=== PATIENT | female | born 1940 | race Caucasian/White ===

== ENCOUNTER 2019-02-01 13:06 | Inpatient (IN) ==
[2019-02-01] MEDS ORDERED: IOPAMIDOL 100 ML BOTTLE IV ONE (13:07)
--- NOTE | 2019-02-01 14:30 | Emergency Department Note ---
General Adult HPI - General Chief complaint: Extremity Problem,Nontraumatic Stated complaint: Confusion, cellulitis Time Seen by Provider: 02/01/19 13:28 Source: patient, other (Caregiver) Mode of arrival: wheelchair Limitations: altered mental status - History of Present Illness HPI Narrative: 79-year-old female was brought in by her caregiver secondary to confusion which has increased lately. They also noted some cyanosis to bilateral feet which has improved. Patient is on aspirin and clopidogrel lately but has not taken for a day or so-secondary to recent nursing instruction. Her caregiver called the clinic and Laura Graham nurse practitioner advised her to come here. No fever chills nausea vomiting diarrhea. She is on doxycycline for left lower leg cellulitis which is actually looking better today. Noted dementia All history and review of systems are from her caregiver in the nursing record. The patient is unable to give me any meaningful history or review of systems and does not know why she is here. She has no complaints-she expresses frustration that she cannot remember anything - Related Data Home Medications Medication Instructions Recorded Confirmed Albuterol Sulfate [Proair Hfa] 2 puff IH Q4H 08/10/15 02/01/19 Atorvastatin [Lipitor] 10 mg PO HS 08/10/15 02/01/19 Budesonide/Formoterol Fumarate 2 puff IH BID 08/10/15 02/01/19 [Symbicort 160-4.5 Mcg Inhaler] DULoxetine [Cymbalta] 90 mg PO DAILY 08/10/15 02/01/19 Furosemide [Lasix] 40 mg PO DAILYP PRN 08/10/15 02/01/19 Gabapentin [Neurontin] 1,200 mg PO BID 08/10/15 02/01/19 Levothyroxine [Synthroid] 150 mcg PO ACB 08/10/15 02/01/19 Modafinil [Provigil] 200 mg PO DAILY 08/10/15 02/01/19 Oxybutynin Chloride [Oxybutynin 15 mg PO HS 08/10/15 02/01/19 Chloride ER] Potassium Chloride 10 meq PO DAILY 08/10/15 02/01/19 Pramipexole [Mirapex] 1 mg PO HS 08/10/15 02/01/19 buPROPion HCL [Bupropion HCl Sr] 150 mg PO BID 08/10/15 02/01/19 traZODone HCL [Desyrel] 150 mg PO HS 08/10/15 02/01/19 doxycycline hyclate 100 mg capsule 100 mg PO BID 02/01/19 02/01/19 Allergies Allergy/AdvReac Type Severity Reaction Status Date / Time iodine [IODINE] Allergy Intermediate Hives Verified 02/01/19 13:07 Sulfa (Sulfonamide Allergy Intermediate Rash Verified 02/01/19 13:07 Antibiotics) cephalexin AdvReac Mild Nausea Verified 02/01/19 13:07 morphine AdvReac Mild Nausea/Vomi Verified 02/01/19 13:07 ting Review of Systems All systems ED: reviewed and negative except as stated. Past Medical History - Past Medical History Attestation: Yes: The following information was validated with the patient. [facility] Narrative: Medical History (Last Reviewed 02/01/19 @ 12:41 by Clarice Menjivar PA-C) Acute respiratory failure with hypercapnia (Acute) Acute respiratory failure with hypoxia (Acute) COPD (chronic obstructive pulmonary disease) with chronic bronchitis (Acute) Depression (Acute) Hyperlipidemia (Acute) Generalized anxiety disorder (Acute) HTN (hypertension) (Acute) Osteoarthritis (Acute) RLS (restless legs syndrome) (Acute) CVA (cerebral vascular accident) (Acute) Hypothyroid (Acute) Weakness (Acute) Shortness of Breath (Acute) Abscess of skin or subcutaneous tissue (Acute) Medical history: Reports: CAD (coronary artery disease), COPD, CVA Psychiatric history: Reports: anxiety Surgical history ED: Reports: non-contributory - Social History smoking status: Current every day smoker Alcohol use: Reports: Unknown Drug use: Reports: unknown Physical Exam No acute distress resting. She is able to sit up for my exam without difficulty or assistance. Normocephalic atraumatic. Conjunctive are clear sclerae white nonicteric. No nasal discharge or congestion. Oropharynx is pink and moist. Posterior pharynx is clear. Neck is supple without lymphadenopathy or thyromegaly. I cannot hear any carotid bruit. Heart is regular rate and rhythm no murmur appreciated. Lungs clear to auscultation bilaterally without wheezes rales rhonchi or respiratory distress. Abdomen soft nontender nondistended. Pedal edema +1-2. No cyanosis at this time. She does have a bandage over one toe. Mild erythema to the left lower leg clark area but this does look improved- like healing cellulitis. She is alert oriented but she does not have much in the way of short-term memory. She tried several times but she could not recall why she was here Limitations: no limitations Course Vital Signs Temperature 97.2 F 02/01/19 13:07 Pulse Rate 63 02/01/19 13:07 Respiratory Rate 20 02/01/19 13:07 Blood Pressure 134/75 02/01/19 13:07 Pulse Oximetry (%) 96 02/01/19 13:07 Temperature 97.2 F 02/01/19 13:07 Pulse Rate 94 H 02/01/19 16:48 Respiratory Rate 20 02/01/19 13:07 Blood Pressure 118/73 02/01/19 16:36 Pulse Oximetry (%) 91 02/01/19 16:48 Medical Decision Making - Medical Records Medical records reviewed: Yes I reviewed the patient's medical records. Her healthcare worker brought in med list which I reviewed with her - Lab Data Lab results reviewed: Yes I reviewed the patient's lab results. Result diagrams: 02/01/19 15:26 02/01/19 15:26 Lab Results 02/01/19 02/01/19 02/01/19 Range/Units 15:26 15:26 15:26 WBC 6.6 (4.5-11.0) K/mcL RBC 5.21 H (4.00-5.20) M/mcL Hgb 13.4 (12.0-15.0) g/dL Hct 43.3 (36.0-48.0) % POC Hct 44.0 (36.0-48.0) % MCV 83.2 (80.0-100.0) fL MCH 25.8 L (26.0-34.0) pg MCHC 31.0 (31.0-36.0) g/dL RDW 15.3 H (11.5-14.5) % Plt Count 309 (140-440) K/mcL MPV 6.6 L (7.4-10.4) fL Gran % 59.4 (38.0-78.0) % Lymph % (Auto) 27.8 (15.5-49.0) % [place] % (Auto) 6.4 (1.0-12.0) % Eos % (Auto) 5.6 (0.0-7.0) % Baso % (Auto) 0.8 (0.0-2.0) % Gran # 3.9 (1.8-8.0) K/mcL Lymph # (Auto) 1.8 (1.5-4.8) K/mcL [place] # (Auto) 0.4 (0.1-0.9) K/mcL Eos # (Auto) 0.4 (0.0-0.7) K/mcL Baso # (Auto) 0.1 (0.0-0.3) K/mcL POC PT (11.9-14.5) sec POC INR (0.9-1.2) VBG Lactic Acid 0.9 (0.5-2.0) mmol/L POC Sodium 140 (133-145) mmol/L Sodium 142 (133-145) mmol/L POC Potassium 4.5 (3.3-5.1) mmol/L Potassium 4.6 (3.3-5.1) mmol/L POC Chloride 95 L (96-108) mmol/L Chloride 97 (96-108) mmol/L Carbon Dioxide 38 H (22-30) mmol/L POC Total CO2 41 H* (22-30) mmol/L Anion Gap 7.0 L (8-16) POC BUN 21 (8-23) mg/dl BUN 18 (8-23) mg/dl Creatinine 0.9 (0.6-1.1) mg/dl POC Creatinine 1.0 (0.6-1.1) mg/dl GFR Calculation 62 Glucose 101 (70-105) mg/dL POC Glucose 101 (70-105) mg/dL Calcium 8.7 (8.6-10.4) mg/dl POC WB Ioniz Calcium 1.05 L (1.16-1.32) mmol/L Total Bilirubin 0.4 (0.0-1.0) mg/dL AST 24 (0-37) U/l ALT 26 (0-40) U/l Alkaline Phosphatase 73 (39-117) U/L Ammonia (11-51) umol/L Total Creatine Kinase 44 (24-170) IU/L Troponin T (0-0.03) ng/ml Total Protein 6.9 (5.9-8.4) gm/dL Albumin 3.7 (3.2-5.2) gm/dL Globulin 3.2 (2.2-3.7) gm/dL Albumin/Globulin Ratio 1.2 (1.0-2.3) 02/01/19 02/01/19 02/01/19 Range/Units 15:26 15:26 15:40 WBC (4.5-11.0) K/mcL RBC (4.00-5.20) M/mcL Hgb (12.0-15.0) g/dL Hct (36.0-48.0) % POC Hct (36.0-48.0) % MCV (80.0-100.0) fL MCH (26.0-34.0) pg MCHC (31.0-36.0) g/dL RDW (11.5-14.5) % Plt Count (140-440) K/mcL MPV (7.4-10.4) fL Gran % (38.0-78.0) % Lymph % (Auto) (15.5-49.0) % [place] % (Auto) (1.0-12.0) % Eos % (Auto) (0.0-7.0) % Baso % (Auto) (0.0-2.0) % Gran # (1.8-8.0) K/mcL Lymph # (Auto) (1.5-4.8) K/mcL [place] # (Auto) (0.1-0.9) K/mcL Eos # (Auto) (0.0-0.7) K/mcL Baso # (Auto) (0.0-0.3) K/mcL POC PT 11.6 L (11.9-14.5) sec POC INR 1.0 (0.9-1.2) VBG Lactic Acid (0.5-2.0) mmol/L POC Sodium (133-145) mmol/L Sodium (133-145) mmol/L POC Potassium (3.3-5.1) mmol/L Potassium (3.3-5.1) mmol/L POC Chloride (96-108) mmol/L Chloride (96-108) mmol/L Carbon Dioxide (22-30) mmol/L POC Total CO2 (22-30) mmol/L Anion Gap (8-16) POC BUN (8-23) mg/dl BUN (8-23) mg/dl Creatinine (0.6-1.1) mg/dl POC Creatinine (0.6-1.1) mg/dl GFR Calculation Glucose (70-105) mg/dL POC Glucose (70-105) mg/dL Calcium (8.6-10.4) mg/dl POC WB Ioniz Calcium (1.16-1.32) mmol/L Total Bilirubin (0.0-1.0) mg/dL AST (0-37) U/l ALT (0-40) U/l Alkaline Phosphatase (39-117) U/L Ammonia 18 (11-51) umol/L Total Creatine Kinase (24-170) IU/L Troponin T < 0.01 (0-0.03) ng/ml Total Protein (5.9-8.4) gm/dL Albumin (3.2-5.2) gm/dL Globulin (2.2-3.7) gm/dL Albumin/Globulin Ratio (1.0-2.3) Urine analysis [id number] dipstick shows specific gravity 1.020 otherwise normal ABG shows a pH 7.32 PCO2 91 PO2 35 on room air - Radiology Data Radiology results reviewed: Yes I reviewed the patient's radiology results. Chest x-ray is negative CT angiogram shows no pulmonary emboli but does show groundglass infiltrates with significant COPD changes - EKG Data EKG #1 EKG attestation: Yes I reviewed and interpreted this EKG., Yes There are no EKG findings of acute coronary syndrome, Yes This EKG will be read by green jobs trainer EKG results narrative: rate is 61 normal sinus rhythm with a PAC. Right axis deviation noted Critical Care Time Critical Care Time: Yes Total Critical Care Time: 30 Attestation: 30 minutes critical care time in addition to initial evaluation and management. This includes coordination of care, reviewing studies documentation and serial exams. It is noted the patient is now on BiPAP and will be admitted for pneumonia Disposition Pt seen by MAILS SUPERVISOR/PA only: No Clinical Impression: Acute respiratory failure with hypoxia and hypercapnia Dementia Qualifiers: Dementia type: unspecified type Dementia behavioral disturbance: without behavioral disturbance Qualified Code(s): F03.90 - Unspecified dementia without behavioral disturbance Pneumonia Qualifiers: Pneumonia type: due to unspecified organism Laterality: bilateral Lung location: unspecified part of lung Qualified Code(s): J18.9 - Pneumonia, unspecified organism Altered mental status Qualifiers: Altered mental status type: somnolence Qualified Code(s): R40.0 - Somnolence Summary: Work-up for altered mental status. CT scan of the head did not have focal deficits Initial laboratory work-up showed elevated bicarbonate so blood gas was done. ABG showed acute respiratory failure with respiratory acidosis hypoxia and hypercapnia. BiPAP was started. I did discuss the results with her before we started BiPAP CT angiogram was then ordered as chest x-ray was negative and we did not have another reason for her to be in respiratory failure. This did not show pulmonary emboli but did show groundglass infiltrates. Blood cultures done and Zosyn is started I discussed the case with our hospitalist Dr. Red who agreed to accept the patient for further care and evaluation in the hospital Disposition: Xfer As Inpt ([facility]) Condition: Critical Referrals: Laura Graham ARNP [Primary Care Provider] -
--- NOTE | 2019-02-01 14:59 | XRay Report ---
CLINICAL INFORMATION: alter mental status COMPARISON: None. FINDINGS: Heart size, mediastinum and pulmonary vessels are normal. There is minor bibasilar atelectasis. No effusion mild old compression fractures seen in the mid lower thoracic spine IMPRESSION: Minor bibasilar atelectasis Interpreted and Authenticated by: Sunil Camargo 02/01/19
[2019-02-01 15:46] LABS: POC Blood Urea Nitrogen 21 mg/dl (8-23); POC CO2 41 mmol/L (22-30); POC Calcium, Ionized 1.05 mmol/L (1.16-1.32); POC Chloride 95 mmol/L (96-108); POC Glucose, Random 101 mg/dL (70-105); POC Potassium 4.5 mmol/L (3.3-5.1); POC Sodium 140 mmol/L (133-145)
[2019-02-01 15:50] LABS: POC Pro Time 11.6 sec (11.9-14.5)
[2019-02-01 15:58] LABS: Basophils # (Auto) 0.1 K/mcL (0.0-0.3); Basophils % (Auto) 0.8 % (0.0-2.0); Eosinophils # (Auto) 0.4 K/mcL (0.0-0.7); Eosinophils % (Auto) 5.6 % (0.0-7.0); Granulocytes % (Auto) 59.4 % (38.0-78.0); Hematocrit 43.3 % (36.0-48.0); Hemoglobin 13.4 g/dL (12.0-15.0); Lymphocytes # (Auto) 1.8 K/mcL (1.5-4.8); Lymphocytes % (Auto) 27.8 % (15.5-49.0); Mean Cell Volume 83.2 fL (80.0-100.0); Mean Platelet Volume 6.6 fL (7.4-10.4); Monocytes # (Auto) 0.4 K/mcL (0.1-0.9); Monocytes % (Auto) 6.4 % (1.0-12.0); Platelet Count 309 K/mcL (140-440); RBC 5.21 M/mcL (4.00-5.20); Red Cell Distribution Width 15.3 % (11.5-14.5); WBC 6.6 K/mcL (4.5-11.0)
[2019-02-01 16:19] LABS: ALT/SGPT 26 U/l (0-40); AST/SGOT 24 U/l (0-37); Albumin 3.7 gm/dL (3.2-5.2); Albumin/Globulin Ratio 1.2 (1.0-2.3); Alkaline Phosphatase 73 U/L (39-117); Bilirubin,Total 0.4 mg/dL (0.0-1.0); Blood Urea Nitrogen 18 mg/dl (8-23); Calcium 8.7 mg/dl (8.6-10.4); Carbon Dioxide 38 mmol/L (22-30); Chloride 97 mmol/L (96-108); Creatine Kinase 44 IU/L (24-170); Globulin 3.2 gm/dL (2.2-3.7); Glomerular Filtration Rate 62; Glucose 101 mg/dL (70-105)
--- NOTE | 2019-02-01 19:14 | Cat Scan Report ---
CLINICAL INFORMATION: Acute respiratory failure COMPARISON: None. TECHNIQUE: ml of Isovue-370 were injected intravenously. Using SmartPrep to maximize pulmonary artery opacification, .625mm helical slices were obtained from the lung apices through the lung bases. Following reconstruction, 2.5 mm sagittal, coronal, and axial reformations were processed. The exam was reviewed at mediastinal, lung, and bone windows. The exam was performed using radiation dose optimization techniques including, but not limited to, automated exposure control, adjustment of the mA and/or kV according to patient size and use of iterative reconstruction technique. FINDINGS: The pulmonary arteries are well opacified - no evidence of embolus. Thoracic aorta is normal diameter with diffuse intimal thickening. There is no adenopathy in the mediastinal hilar or axillary regions. The heart is moderately enlarged with scattered fibrofatty calcific plaque in the coronary arteries. Lipomatous infiltration of the interatrial septum appreciated - likely insignificant. Esophagus is grossly normal. Thyroid is diminutive. Pulmonary parenchymal windows show chronic bronchitis changes. There is patchy groundglass airspace disease the posterior segment the right upper lobe which could indicate developing infiltrate. Mixed airspace disease seen in the posterior right lower lobe which is symmetric and tomosynthesis early atelectasis and/or fibrosis rather than developing infiltrate. No effusion. Bone windows show no osseous abnormality IMPRESSION: 1. No evidence of pulmonary embolus 2. Small groundglass infiltrate posterior segment right upper lobe. Mild airspace disease along both posterior lower lobe which is more likely atelectasis or garden developing infiltrate. Chronic underlying bronchitis 3. Diminutive thyroid - please correlate with TSH Interpreted and Authenticated by: Sunil Camargo 02/01/19
[2019-02-01] MEDS ORDERED: PIPERACILLIN SODIUM/TAZOBACTAM 3.375 GM in DEXTROSE 5% IN WATER 50 ML IV ONE (19:25)
--- NOTE | 2019-02-01 19:35 | Internal Med History&Physical ---
Medical - H&P: [facility] Patient information: Note initiated : 02/01/19 at 7:31 pm Service Date, if different from initiated Date: [] Patient: Barbie Brunson a 79 y/o F admitted on for Confusion, Cellulitis. Chief Complaint: [] Chief complaint: Confused and SOB History of present illness: Ms. Waqas Chen is a 79 year old F morbidly obese with a history of advanced COPD who was brought into the ER with increasing weakness, confusion and shortness of breath. She is accompanied by her caregiver. Most of the history was obtained from the caregiver. Patient has been lethargic over the last couple of days and has progressed to the point she can barely move or function unable get out of bed. She is also noted to have significant redness involving left lower extremity from the ankle up to the knee along with increasing tenderness without bruising. She was prescribed doxycycline by her primary care physician. Her symptoms continue to deteriorate despite treatment. During the initial evaluation in the ER patient was not able to provide any meaningful history. ABG revealed significant hypercapnia with respiratory acidosis with pH of 7.32/91/35. CT angiogram chest revealed right upper lobe infiltrate suggestive of pneumonia but no evidence of PE. Patient was started on noninvasive ventilation in light of hypercapnic respiratory failure. Subsequently hospitalist service was consulted. At the time of evaluation patient currently on BiPAP. Unable to answer or provide mean ingful response to questions. She appears very lethargic fatigued and barely able to open her eyes. Most of the history is obtained from review of medical records and from ER physician. Caregiver is bedside. Review of systems attempted Patient could only answer in yes and no's and denies chest pain, headache, fever, diarrhea, dysuria or abdominal pain. Medical - H&P: PMH Medical history: Osteoarthritis Hypertension Recurrent major depression and generalized anxiety disorder Hyperlipidemia Restless leg syndrome history of CVA, wheelchair bound. COPD Hypothyroidism Chronic bladder incontinence Insomnia Sleep disorder with excessive daytime sleepiness, responding to Nuvigil Allergies: Cephalexin causes vomiting Morphine Sulfacauses rash Our chart indicates allergies to iodine Medications:Per the records advair 250/50 one puff every 12 hours Albuterol inhaler 2 puffs every 4 hours Atorvastatin 10 mg daily Bupropion SR 150 mg twice a day Plavix 75 mg daily Clotrimazole 1% topical cream applied twice a day Duloxetine 30 mg daily, possibly +60 mg daily DuoNeb 4 times a day when necessary Lasix40 mg daily when necessary Gabapentin 1200 mg twice a day Vicodin 10/325 one tab every 4 hours when necessary Levothyroxine 150 g daily Modafinil 200 mg daily Nitroglycerin 0.4 mg sublingual when necessary Oxybutynin ER 15 mg daily at bedtime Potassium chloride 10 mEq daily Pramipexole 1 mg daily at bedtime Trazodone 100 mg1-1/2 tabs daily at bedtime Vitamin D 2000 units daily social history: smoking status: Current every day smoker Chas provides help at home She drinks a glass of wine only occasionally. No drugs Family history: Is currently unobtainable. Medical - H&P: Meds Home Medications Medication Instructions Recorded Confirmed Type Albuterol Sulfate [Proair Hfa] 2 puff IH Q4H 08/10/15 02/01/19 History Atorvastatin [Lipitor] 10 mg PO HS 08/10/15 02/01/19 History DULoxetine [Cymbalta] 90 mg PO DAILY 08/10/15 02/01/19 History Furosemide [Lasix] 40 mg PO DAILYP PRN 08/10/15 02/01/19 History Gabapentin [Neurontin] 1,200 mg PO BID 08/10/15 02/01/19 History Levothyroxine [Synthroid] 175 mcg PO ACB 08/10/15 02/01/19 History Oxybutynin Chloride [Oxybutynin 15 mg PO HS 08/10/15 02/01/19 History Chloride ER] Potassium Chloride 10 meq PO DAILY 08/10/15 02/01/19 History Pramipexole [Mirapex] 1 mg PO HS 08/10/15 02/01/19 History buPROPion HCL [Bupropion HCl Sr] 300 mg PO BID 08/10/15 02/01/19 History doxycycline hyclate 100 mg capsule 100 mg PO BID 02/01/19 02/01/19 History Allergies Allergy/AdvReac Type Severity Reaction Status Date / Time iodine [IODINE] Allergy Intermediate Hives Verified 02/01/19 13:07 Sulfa (Sulfonamide Allergy Intermediate Rash Verified 02/01/19 13:07 Antibiotics) cephalexin AdvReac Mild Nausea Verified 02/01/19 13:07 morphine AdvReac Mild Nausea/Vomi Verified 02/01/19 13:07 tan Medical - H&P: Exam - Constitutional Vitals: Temp Pulse Resp BP Pulse Ox 97.2 F 95 H 20 119/77 92 02/01/19 13:07 02/01/19 17:01 02/01/19 13:07 02/01/19 17:01 02/01/19 17:01 General appearance: morbidly obese Exam: Currently on BiPAP Lethargic fatigued and barely able to open eyes Head normocephalic Oral cavity dry No ear nose discharge Neck lymph apathy S1-S2 tachycardia Diminished breath sounds bases Abdomen soft pendulous nontender Lower extremity lymphedema along with extensive erythema involving left lower extremity from ankle to the knee and tender to palpation Right lower extremity lymphedema without erythema Skin no suspicious lesion Psych fatigue lethargic no agitation anxiety Neuro could not be performed Medical - H&P: Reslt - Labs CBC & Chem 7: 02/02/19 04:06 02/02/19 04:06 Labs: Short CBC 02/01/19 Range/Units 15:26 WBC 6.6 (4.5-11.0) K/mcL Hgb 13.4 (12.0-15.0) g/dL Hct 43.3 (36.0-48.0) % Plt Count 309 (140-440) K/mcL BMP 02/01/19 15:26 Sodium 142 Potassium 4.6 Chloride 97 Carbon Dioxide 38 H BUN 18 Creatinine 0.9 Glucose 101 Calcium 8.7 Cardiac Enzymes 02/01/19 02/01/19 Range/Units 15:26 15:26 Total Creatine Kinase 44 (24-170) IU/L Troponin T < 0.01 (0-0.03) ng/ml Liver Function 02/01/19 Range/Units 15:26 Total Bilirubin 0.4 (0.0-1.0) mg/dL AST 24 (0-37) U/l ALT 26 (0-40) U/l Alkaline Phosphatase 73 (39-117) U/L Albumin 3.7 (3.2-5.2) gm/dL Medical - H&P: A/P (1) Acute respiratory failure with hypercapnia Current visit: No Status: Acute * Acute Hypoxic hypercapnic respiratory failure-underlying severe MONI with chronic CO2 retention. Now with acute worsening with hypercapnic enceph alopathy. Initiate noninvasive mechanical ventilation. Check serial blood gas. Critically ill. Admit blood gas 7.32/91/35, Repeat blood gas after 2 hours on BiPAP worsened to 7.29/1 104/66 on 40% FiO2. Will intubate if continues to get worse. Change noninvasive vent setting with higher rate * Hypercapnic encephalopathy with near unresponsive state-serial ABG/noninvasive ventilation * COPD exacerbation -start IV steroids/bronchodilators/pulmonary toilet/aspiration precautions * Right upper lobe pneumonia likely secondary to aspiration. Keep n.p.o. Aspiration precautions/elevate HOB/empiric antibiotic coverage * History MONI with chronic CO2 retention with baseline corrected () CO2 around 60. * history of CAD continue on aspirin/Plavix/statin * Left lower extremity cellulitis-on antibiotic coverage. Wound care consult * Hyperlipidemia on statin * Tobacco dependence start nicotine patch Plan * Initiate noninvasive mechanical ventilation in light of hypoxic hypercapnic respiratory failure, titrate settings based on serial blood gas * ICU admission in light of [place] score 18 indicating high risk mortality * Chest imaging * Wound care consult * Pre-existing medical condition -Home medication on hold until patient off BiPAP in stable - Narrative A/P Narrative: Critical care time in excess of 35 minutes. Time spent on history and physical over 70 minutes/review of labs imaging/prior medical records/evaluation and discussion with physician
[2019-02-01] MEDS ORDERED: POTASSIUM CHLORIDE 20 MEQ PACKET PO PRN (21:48)
[2019-02-01] MEDS ORDERED: ACETAMINOPHEN 650 MG/65 ML BOTTLE IV PRN (21:48)
[2019-02-01] MEDS ORDERED: ONDANSETRON 4 MG/2 ML VIAL IV PRN (21:48)
[2019-02-01] MEDS ORDERED: MAGNESIUM SULFATE 2 GM/50 ML BAG IV PRN (21:48)
[2019-02-01] MEDS: 0.9 % SODIUM CHLORIDE 10 ML SYRINGE IV SCH (22:00)
[2019-02-01] MEDS: IPRATROPIUM/ALBUTEROL 3 ML AMPUL.NEB NEB SCH (23:25)
[2019-02-01] MEDS: BUDESONIDE 0.5 MG/2 ML AMPUL.NEB NEB SCH (23:26)
[2019-02-02] MEDS: DOCUSATE SODIUM 100 MG CAPSULE PO SCH ×3 (00:19→19:58)
[2019-02-02] MEDS: SENNOSIDES/DOCUSATE SODIUM 1 TAB TABLET PO SCH ×2 (00:20→19:59)
[2019-02-02] MEDS: HEPARIN 5,000 UNIT/ML VIAL SQ SCH ×3 (00:46→19:59)
[2019-02-02] MEDS: methylPREDNISolone SOD SUCC 125 MG/2 ML VIAL IV SCH ×4 (00:47→21:46)
[2019-02-02] MEDS: 0.9 % SODIUM CHLORIDE 1,000 ML IV SCH ×2 (00:49→21:53)
[2019-02-02] MEDS: PIPERACILLIN SODIUM/TAZOBACTAM 3.375 GM in DEXTROSE 5% IN WATER 50 ML IV SCH ×4 (01:16→17:45)
[2019-02-02] MEDS: IPRATROPIUM/ALBUTEROL 3 ML AMPUL.NEB NEB SCH ×6 (03:20→22:32)
[2019-02-02] MEDS ORDERED: LORazepam 2 MG/ML VIAL IV ONE (03:26)
[2019-02-02] MEDS ORDERED: LORazepam 2 MG/ML VIAL ONE (03:30)
[2019-02-02] MEDS: 0.9 % SODIUM CHLORIDE 10 ML SYRINGE IV SCH ×3 (05:45→21:47)
[2019-02-02 06:20] LABS: Hematocrit 41.5 % (36.0-48.0); Hemoglobin 12.9 g/dL (12.0-15.0); Mean Cell Volume 83.6 fL (80.0-100.0); Mean Corpuscular HGB Conc 31.1 g/dL (31.0-36.0); Mean Platelet Volume 6.9 fL (7.4-10.4); Platelet Count 276 K/mcL (140-440); RBC 4.97 M/mcL (4.00-5.20); Red Cell Distribution Width 15.5 % (11.5-14.5); WBC 6.9 K/mcL (4.5-11.0)
[2019-02-02 07:09] LABS: ALT/SGPT 25 U/l (0-40); AST/SGOT 24 U/l (0-37); Albumin 3.6 gm/dL (3.2-5.2); Albumin/Globulin Ratio 1.1 (1.0-2.3); Alkaline Phosphatase 78 U/L (39-117); Bilirubin,Direct < 0.2 mg/dL (0.0-0.3); Bilirubin,Total 0.6 mg/dL (0.0-1.0); Blood Urea Nitrogen 16 mg/dl (8-23); Calcium 8.6 mg/dl (8.6-10.4); Carbon Dioxide 40 mmol/L (22-30); Globulin 3.3 gm/dL (2.2-3.7); Glomerular Filtration Rate 54; Glucose 131 mg/dL (70-105); Lactate Dehydrogenase 242 U/L (94-250); Phosphorous 3.9 mg/dL (2.7-4.5); Triglycerides 61 mg/dl (<150)
[2019-02-02 07:12] LABS: Chloride 93 mmol/L (96-108)
[2019-02-02] MEDS ORDERED: LEVOTHYROXINE 150 MCG TABLET PO SCH (07:30)
[2019-02-02 07:43] LABS: Anisocytosis FEW (NONE SEEN); Eosinophils % (Manual) 1 % (0-7); Lymphocytes % 9 % (15-49); Platelet Estimate NORMAL (NORMAL); RBC Morphology ABNORM (NORMAL); Segmented Neutrophils % 90 % (38-78)
[2019-02-02] MEDS: BUDESONIDE 0.5 MG/2 ML AMPUL.NEB NEB SCH ×2 (07:43→19:12)
[2019-02-02] MEDS: POTASSIUM CHLORIDE 10 MEQ TABLET PO SCH (08:39)
[2019-02-02] MEDS: LEVOTHYROXINE 75 MCG TABLET PO SCH (08:39)
[2019-02-02] MEDS: buPROPion 150 MG TAB.SR.12H PO SCH ×2 (08:44→19:58)
[2019-02-02] MEDS: GABAPENTIN 300 MG CAPSULE PO SCH ×2 (08:44→19:58)
[2019-02-02] MEDS: DULoxetine 30 MG CAPSULE PO SCH (08:44)
[2019-02-02] MEDS: LEVOTHYROXINE 100 MCG TABLET PO SCH (08:44)
[2019-02-02] MEDS: NICOTINE 14 MG PATCH TOPICAL SCH ×2 (08:48→08:51)
[2019-02-02] MEDS: LORazepam 2 MG/ML VIAL IV PRN ×3 (10:41→21:10)
[2019-02-02] MEDS ORDERED: acetaZOLAMIDE SOD 500 MG VIAL IV ONE (11:05)
--- NOTE | 2019-02-02 11:06 | Internal Med Progress Note ---
Medical - PN: Subj Patient information: Note initiated : 02/02/19 at 11:01 am Service Date, if different from initiated Date: [] Patient: Barbie Brunson a 79 y/o F admitted on 02/01/19 for Confusion, Cellulitis. Chief Complaint: [] Interval history: Ms. Waqas Chen is a 79 year old F morbidly obese with a history of advanced COPD who was brought into the ER with increasing weakness, confusion and shortness of breath. She is accompanied by her caregiver. Most of the history was obtained from the caregiver. Patient has been lethargic over the last couple of days and has progressed to the point she can barely move or function unable get out of bed. She is also noted to have significant redness involving left lower extremity from the ankle up to the knee along with increasing tenderness without bruising. She was prescribed doxycycline by her primary care physician. Her symptoms continue to deteriorate despite treatment. During the initial evaluation in the ER patient was not able to provide any meaningful history. ABG revealed significant hypercapnia with respiratory acidosis with pH of 7.32/91/35. CT angiogram chest revealed right upper lobe infiltrate suggestive of pneumonia but no evidence of PE. Patient was started on noninvasive ventilation in light of hypercapnic respiratory failure. Subsequently hospitalist service was consulted. At the time of evaluation patient currently on BiPAP. Unable to answer or provide meaningful response to questions. She appears very lethargic fatigued and barely able to open her eyes. Most of the history is obtained from review of medical records and from ER physician. Caregiver is bedside. 02/02-patient overnight on BiPAP. ABG improved from 7.29/106 -> 7.37/79/54 on 45% FiO2. Patient more alert and awake but anxious. Responding to commands. Able to express needs. No telemetry events. No fever chills. On antibiotic coverage. Continue IV steroids. Left lower extremity redness and swelling much improved. Significant alkalosis, 1 dose Diamox. Continue bronchodilators/breathing treatment/interval chest imaging and serial blood gas - Constitutional Vitals: Vital Signs Temp Pulse Resp BP Pulse Ox 97.6 F 87 19 119/66 92 02/02/19 10:01 02/02/19 10:01 02/02/19 10:01 02/02/19 10:01 02/02/19 10:01 Period Temp Pulse Resp BP Sys/Hobbs Pulse Ox Last 24 Hr 97.2 F-98.7 F 63-105 14-29 63-168/30-118 82-100 Intake and Output 02/01/19 02/02/19 02/02/19 21:59 05:59 13:59 Intake Total 50 100 240 Output Total 1 3 Balance 49 97 240 Weight 260 lb Intake & Output: Intake & Output 02/01/19 02/02/19 02/02/19 21:59 05:59 13:59 Intake Total 50 100 240 Output Total 1 3 Balance 49 97 240 Weight 260 lb Intake: IV 50 100 Zosyn 3.375 gm In Dextrose 5% 50 100 in Water 50 ml @ 100 mls/hr IV Q6H [facility] Rx#:[id number] Oral 240 Output: # of times incontinent of urine 1 3 Other: # Bowel Movements 0 General appearance: no acute distress Exam: Currently on BiPAP Alert and respond to commands No telemetry events Nondistended abdomen left lower extremity redness and Tenderness much improved Medical - PN: Obj Da - Labs CBC & Chem 7: 02/02/19 04:06 02/02/19 04:06 Labs: Abnormal Lab Results 02/02/19 02/02/19 02/01/19 04:06 04:06 15:40 RBC MCH RDW 15.5 H MPV 6.9 L Seg Neutrophils % 90 H Lymphocytes % 9 L RBC Morphology Abnorm A Anisocytosis Few A POC PT 11.6 L POC Chloride Chloride 93 L Carbon Dioxide 40 H POC Total CO2 Anion Gap Glucose 131 H POC WB Ioniz Calcium 02/01/19 02/01/19 15:26 15:26 RBC 5.21 H MCH 25.8 L RDW 15.3 H MPV 6.6 L Seg Neutrophils % Lymphocytes % RBC Morphology Anisocytosis POC PT POC Chloride 95 L Chloride Carbon Dioxide 38 H POC Total CO2 41 H* Anion Gap 7.0 L Glucose POC WB Ioniz Calcium 1.05 L Meds: Medications Acetaminophen (Tylenol) 650 mg PO Q4-6HP PRN; Protocol PRN Reason: Per Pain Protocol/Fever > 101 Albuterol/Ipratropium (Duoneb) 3 ml NEB Q4HRT [facility] Last Admin: 02/02/19 07:43 Dose: 3 ml Documented by: Budesonide (Pulmicort) 0.5 mg NEB Q12 [facility] Last Admin: 02/02/19 07:43 Dose: 0.5 mg Documented by: Bupropion HCl (Wellbutrin Sr) 300 mg PO BID [facility] Last Admin: 02/02/19 08:44 Dose: 300 mg Documented by: Docusate Sodium (Colace) 100 mg PO BID [facility] Last Admin: 02/02/19 08:44 Dose: 100 mg Documented by: Duloxetine HCl (Cymbalta) 90 mg PO DAILY [facility] Last Admin: 02/02/19 08:44 Dose: 90 mg Documented by: Gabapentin (Neurontin) 1,200 mg PO BID [facility] Last Admin: 02/02/19 08:44 Dose: 1,200 mg Documented by: Heparin Sodium (Porcine) (Heparin) 5,000 unit SQ Q12 [facility] Last Admin: 02/02/19 08:44 Dose: 5,000 unit Documented by: Sodium Chloride (Sodium Chloride 0.9%) 1,000 mls @ 50 mls/hr IV .Q20H [facility] Stop: 02/04/19 09:47 Last Admin: 02/02/19 00:49 Dose: 50 mls/hr Documented by: Acetaminophen (Ofirmev) 650 mg in 65 mls @ 130 mls/hr IV Q6HP PRN; Protocol PRN Reason: Per Pain Protocol/Fever > 101 Magnesium Sulfate (Magnesium Sulfate) 2 gm in 50 mls @ 50 mls/hr IV UD PRN PRN Reason: MG = or < 1.7 Piperacillin Sod/Tazobactam (Sod 3.375 gm/ Dextrose) 50 mls @ 100 mls/hr IV Q6H [facility]; Protocol Last Infusion: 02/02/19 05:30 Dose: Infused Documented by: Levothyroxine Sodium (Synthroid) 100 mcg PO ACB [facility] Last Admin: 02/02/19 08:44 Dose: 100 mcg Documented by: Levothyroxine Sodium (Synthroid) 75 mcg PO QAMAC [facility] Last Admin: 02/02/19 08:39 Dose: 75 mcg Documented by: Lorazepam (Ativan) 0.5 mg IV Q4HP PRN PRN Reason: ANXIETY/SEDATION Last Admin: 02/02/19 10:41 Dose: 0.5 mg Documented by: Melatonin (Melatonin 3mg Tablet) 3 mg PO HSP PRN PRN Reason: Insomnia Methylprednisolone Sodium Succinate (Solu-Medrol) 60 mg IV Q8 [facility] Last Admin: 02/02/19 05:44 Dose: 60 mg Documented by: Nicotine (Nicoderm) 14 mg TOPICAL DAILY@1000 [facility] Last Admin: 02/02/19 08:51 Dose: Not Given Documented by: Non-Formulary Medication (Atorvastatin [Lipitor]) 10 mg PO [facility] Ondansetron HCl (Zofran) 4 mg IV Q4-6HP PRN; Protocol PRN Reason: Nausea And Vomiting Potassium Chloride (Klor-Con) 40 meq PO DAILYP PRN PRN Reason: K+ < 3.5 Potassium [facility] (Kdur) [facility] Last Admin: 02/02/19 08:39 Dose: 10 meq Documented by: Pramipexole Dihydrochloride (Mirapex) 1 mg PO [facility] Senna/Docusate Sodium (Senna Plus Tablet) 1 tab PO [facility] Last Admin: 02/02/19 00:20 Dose: Not Given Documented by: Sodium Chloride (Saline Flush) 10 ml IV Q8 [facility] Last Admin: 02/02/19 05:45 Dose: Not Given Documented by: Medical - PN: A/P - Time Spent With Patient Total time spent is greater than 50% in coordination of care (as documented) at patient's floor/unit and/or counseling patient: Greater than 35 minutes (Critical care time) (1) Acute respiratory failure with hypercapnia Status: Acute Assessment and plan: * Acute Hypoxic hypercapnic respiratory failure-clinically improving with PCO2 down from 106->79 with pH improving from 7.29->7.37. Continue noninvasive mechanical ventilation check serial blood gas. Critically ill. Admit blood gas 7.32/91/35, Repeat blood gas after 2 hours on BiPAP worsened to 7.29/1 104/66 on 40% FiO2. Will intubate if continues to get worse. Change noninvasive vent setting with higher rate * Hypercapnic encephalopathy with near unresponsive state-clinically improved with normalizing of hypercapnia * COPD exacerbation -clinically improved on steroids/bronchodilators * Right upper lobe pneumonia likely secondary to aspiration. Start diet per ST recommendations. Continue aspiration precautions/elevate HOB/antibiotic coverage * Severe self-care deficit/deconditioning and high risk injury/fall * History MONI with chronic CO2 retention with baseline corrected () CO2 around 60. * history of CAD continue on aspirin/Plavix/statin * Left lower extremity cellulitis-continue antibiotic coverage. Limb elevation * Hyperlipidemia on statin * Tobacco dependence continue nicotine patch Plan * Continue noninvasive mechanical ventilation and wean as tolerated * Serial blood gas/chest imaging * Prior medical condition management and home meds * PT OT/nutrition support * Case management to coordinate discharge planning Current Visit: No Medical - PN: Qual - VTE Deep Vein Thrombosis/Pulmonary Embolism Present on Admission: No
[2019-02-02] MEDS ORDERED: FUROSEMIDE 20 MG TABLET PO PRN (11:08)
[2019-02-02] MEDS: PRAMIPEXOLE 1 MG TABLET PO SCH (19:59)
[2019-02-02] MEDS: MELATONIN 3 MG TABLET PO PRN (20:06)
[2019-02-02] MEDS ORDERED: ATORVASTATIN 10 MG PO SCH (21:00)
[2019-02-03] MEDS: PIPERACILLIN SODIUM/TAZOBACTAM 3.375 GM in DEXTROSE 5% IN WATER 50 ML IV SCH ×4 (00:40→17:28)
[2019-02-03] MEDS: LORazepam 2 MG/ML VIAL IV PRN ×5 (02:33→18:26)
[2019-02-03] MEDS: IPRATROPIUM/ALBUTEROL 3 ML AMPUL.NEB NEB SCH ×6 (02:34→22:54)
[2019-02-03] MEDS: 0.9 % SODIUM CHLORIDE 10 ML SYRINGE IV SCH ×3 (05:45→21:29)
[2019-02-03] MEDS: methylPREDNISolone SOD SUCC 125 MG/2 ML VIAL IV SCH ×3 (05:46→21:29)
[2019-02-03 06:16] LABS: Hematocrit 39.4 % (36.0-48.0); Hemoglobin 12.5 g/dL (12.0-15.0); Mean Cell Volume 82.7 fL (80.0-100.0); Mean Corpuscular HGB Conc 31.7 g/dL (31.0-36.0); Mean Platelet Volume 7.1 fL (7.4-10.4); Platelet Count 258 K/mcL (140-440); RBC 4.76 M/mcL (4.00-5.20); Red Cell Distribution Width 15.5 % (11.5-14.5); WBC 6.3 K/mcL (4.5-11.0)
[2019-02-03] MEDS: ACETAMINOPHEN 325 MG TABLET PO PRN (06:26)
[2019-02-03] MEDS: LEVOTHYROXINE 100 MCG TABLET PO SCH (06:27)
[2019-02-03] MEDS: POTASSIUM CHLORIDE 10 MEQ TABLET PO SCH (06:27)
[2019-02-03] MEDS: LEVOTHYROXINE 75 MCG TABLET PO SCH (06:27)
[2019-02-03 06:36] LABS: ALT/SGPT 69 U/l (0-40); AST/SGOT 59 U/l (0-37); Albumin 3.3 gm/dL (3.2-5.2); Alkaline Phosphatase 73 U/L (39-117); Bilirubin,Direct < 0.2 mg/dL (0.0-0.3); Bilirubin,Total 0.6 mg/dL (0.0-1.0); Blood Urea Nitrogen 22 mg/dl (8-23); Calcium 8.4 mg/dl (8.6-10.4); Carbon Dioxide 34 mmol/L (22-30); Chloride 96 mmol/L (96-108); Globulin 3.2 gm/dL (2.2-3.7); Glomerular Filtration Rate 48; Glucose 143 mg/dL (70-105); Lactate Dehydrogenase 206 U/L (94-250); Phosphorous 4.1 mg/dL (2.7-4.5); Triglycerides 57 mg/dl (<150); Uric Acid 4.1 mg/dL (2.5-8.0)
[2019-02-03 06:54] LABS: Lymphocytes % 8 % (15-49); Platelet Estimate NORMAL (NORMAL); RBC Morphology NORMAL (NORMAL); Segmented Neutrophils % 92 % (38-78)
[2019-02-03] MEDS: BUDESONIDE 0.5 MG/2 ML AMPUL.NEB NEB SCH ×2 (07:05→18:55)
[2019-02-03] MEDS: DOCUSATE SODIUM 100 MG CAPSULE PO SCH ×2 (08:08→19:17)
[2019-02-03] MEDS: GABAPENTIN 300 MG CAPSULE PO SCH ×2 (08:08→19:18)
[2019-02-03] MEDS: buPROPion 150 MG TAB.SR.12H PO SCH ×2 (08:08→19:19)
[2019-02-03] MEDS: DULoxetine 30 MG CAPSULE PO SCH (08:08)
[2019-02-03] MEDS: HEPARIN 5,000 UNIT/ML VIAL SQ SCH ×2 (08:08→21:29)
[2019-02-03] MEDS: NICOTINE 14 MG PATCH TOPICAL SCH (08:09)
--- NOTE | 2019-02-03 11:00 | Internal Med Progress Note ---
Medical - PN: Subj Patient information: Note initiated : 02/03/19 at 10:56 am Service Date, if different from initiated Date: [] Patient: Barbie Brunson a 79 y/o F admitted on 02/01/19 for Confusion, Cellulitis. Chief Complaint: [] Interval history: Ms. Waqas Chen is a 79 year old F morbidly obese with a history of advanced COPD who was brought into the ER with increasing weakness, confusion and shortness of breath. She is accompanied by her caregiver. Most of the history was obtained from the caregiver. Patient has been lethargic over the last couple of days and has progressed to the point she can barely move or function unable get out of bed. She is also noted to have significant redness involving left lower extremity from the ankle up to the knee along with increasing tenderness without bruising. She was prescribed doxycycline by her primary care physician. Her symptoms continue to deteriorate despite treatment. During the initial evaluation in the ER patient was not able to provide any meaningful history. ABG revealed significant hypercapnia with respiratory acidosis with pH of 7.32/91/35. CT angiogram chest revealed right upper lobe infiltrate suggestive of pneumonia but no evidence of PE. Patient was started on noninvasive ventilation in light of hypercapnic respiratory failure. Subsequently hospitalist service was consulted. At the time of evaluation patient currently on BiPAP. Unable to answer or provide meaningful response to questions. She appears very lethargic fatigued and barely able to open her eyes. Most of the history is obtained from review of medical records and from ER physician. Caregiver is bedside. 02/02-patient overnight on BiPAP. ABG improved from 7.29/106 -> 7.37/79/54 on 45% FiO2. Patient more alert and awake but anxious. Responding to commands. Able to express needs. No telemetry events. No fever chills. On antibiotic coverage. Continue IV steroids. Left lower extremity redness and swelling much improved. Significant alkalosis, 1 dose Diamox. Continue bronchodilators/breathing treatment/interval chest imaging and serial blood gas 02/03-patient continues on noninvasive mechanical ventilation. ABG worsened from 7.38/83/57-> 7.34/73/51 on 50% FiO2. Continuing bronchodilators. Remains minimally responsive and very anxious when awake. Increasing right basilar infiltrates on chest imaging. Continue steroids bronchodilators. Continue aggressive PT OT as tolerated. Patient remains critically ill due to advanced COPD and hypercapnic respiratory failure. Serial blood gas/imaging to follow. - Constitutional Vitals: Vital Signs Temp Pulse Resp BP Pulse Ox 97.5 F 83 24 H 114/76 93 02/03/19 04:01 02/03/19 07:05 02/03/19 10:01 02/03/19 10:01 02/03/19 10:01 Period Temp Pulse Resp BP Sys/Hobbs Pulse Ox Last 24 Hr 97.0 F-98.6 F 80-95 14-33 64-122/39-99 88-95 Intake and Output 02/02/19 02/03/19 02/03/19 21:59 05:59 13:59 Intake Total 1580 530 270 Output Total 2 3 Balance 1578 527 270 Weight 247 lb 12.8 oz Intake & Output: Intake & Output 02/02/19 02/03/19 02/03/19 21:59 05:59 13:59 Intake Total 1580 530 270 Output Total 2 3 Balance 1578 527 270 Weight 247 lb 12.8 oz Intake: IV 1100 50 50 Sodium Chloride 0.9% 1,000 ml @ 1000 50 mls/hr IV .Q20H [facility] Rx#: [id number] Zosyn 3.375 gm In Dextrose 5% 100 50 50 in Water 50 ml @ 100 mls/hr IV Q6H [facility] Rx#:[id number] Oral 480 480 220 Output: # of times incontinent of urine 2 3 Other: Urine Color Bright Yellow Dark Yellow Urine Odor Strong # Bowel Movements 0 0 General appearance: no acute distress Exam: On noninvasive mechanical ventilation on 50% FiO2 Diminished breath sounds bases Minimally responsive No lymphedema Remains tachypneic No telemetry events Medical - PN: Obj Da - Labs CBC & Chem 7: 02/03/19 04:00 02/03/19 04:00 Labs: Abnormal Lab Results 02/03/19 02/03/19 02/02/19 04:00 04:00 04:06 RBC MCH RDW 15.5 H MPV 7.1 L Seg Neutrophils % 92 H Lymphocytes % 8 L RBC Morphology Anisocytosis POC PT POC Chloride Chloride 93 L Carbon Dioxide 34 H 40 H POC Total CO2 Anion Gap Glucose 143 H 131 H Calcium 8.4 L POC WB Ioniz Calcium AST 59 H ALT 69 H 02/02/19 02/01/19 02/01/19 04:06 15:40 15:26 RBC MCH RDW 15.5 H MPV 6.9 L Seg Neutrophils % 90 H Lymphocytes % 9 L RBC Morphology Abnorm A Anisocytosis Few A POC PT 11.6 L POC Chloride 95 L Chloride Carbon Dioxide 38 H POC Total CO2 41 H* Anion Gap 7.0 L Glucose Calcium POC WB Ioniz Calcium 1.05 L AST ALT 02/01/19 15:26 RBC 5.21 H MCH 25.8 L RDW 15.3 H MPV 6.6 L Seg Neutrophils % Lymphocytes % RBC Morphology Anisocytosis POC PT POC Chloride Chloride Carbon Dioxide POC Total CO2 Anion Gap Glucose Calcium POC WB Ioniz Calcium AST ALT Meds: Medications Acetaminophen (Tylenol) 650 mg PO Q4-6HP PRN; Protocol PRN Reason: Per Pain Protocol/Fever > 101 Last Admin: 02/03/19 06:26 Dose: 650 mg Documented by: Albuterol/Ipratropium (Duoneb) 3 ml NEB Q4HRT [facility] Last Admin: 02/03/19 07:05 Dose: 3 ml Documented by: Atorvastatin Calcium (Lipitor) 10 mg PO HS [facility] Budesonide (Pulmicort) 0.5 mg NEB Q12 [facility] Last Admin: 02/03/19 07:05 Dose: 0.5 mg Documented by: Bupropion HCl (Wellbutrin Sr) 300 mg PO BID [facility] Last Admin: 02/03/19 08:08 Dose: 300 mg Documented by: Docusate Sodium (Colace) 100 mg PO BID [facility] Last Admin: 02/03/19 08:08 Dose: 100 mg Documented by: Duloxetine HCl (Cymbalta) 90 mg PO DAILY [facility] Last Admin: 02/03/19 08:08 Dose: 90 mg Documented by: Furosemide (Lasix) 40 mg PO DAILYP PRN PRN Reason: Edema Gabapentin (Neurontin) 1,200 mg PO BID [facility] Last Admin: 02/03/19 08:08 Dose: 1,200 mg Documented by: Heparin Sodium (Porcine) (Heparin) 5,000 unit SQ Q12 [facility] Last Admin: 02/03/19 08:08 Dose: 5,000 unit Documented by: Sodium Chloride (Sodium Chloride 0.9%) 1,000 mls @ 50 mls/hr IV .Q20H [facility] Stop: 02/04/19 09:47 Last Admin: 02/02/19 21:53 Dose: 50 mls/hr Documented by: Acetaminophen (Ofirmev) 650 mg in 65 mls @ 130 mls/hr IV Q6HP PRN; Protocol PRN Reason: Per Pain Protocol/Fever > 101 Magnesium Sulfate (Magnesium Sulfate) 2 gm in 50 mls @ 50 mls/hr IV UD PRN PRN Reason: MG = or < 1.7 Piperacillin Sod/Tazobactam (Sod 3.375 gm/ Dextrose) 50 mls @ 100 mls/hr IV Q6H [facility]; Protocol Last Infusion: 02/03/19 06:30 Dose: Infused Documented by: Levothyroxine Sodium (Synthroid) 100 mcg PO ACB [facility] Last Admin: 02/03/19 06:27 Dose: 100 mcg Documented by: [facility]ine [facility]) [facility] Last Admin: 02/03/19 06:27 Dose: 75 mcg Documented by: Lorazepam (Ativan) 0.5 mg IV Q4HP PRN PRN Reason: ANXIETY/SEDATION Last Admin: 02/03/19 06:25 Dose: 0.5 mg Documented by: Melatonin (Melatonin 3mg Tablet) 3 mg PO HSP PRN PRN Reason: Insomnia Last Admin: 02/02/19 20:06 Dose: 3 mg Documented by: Methylprednisolone Sodium Succinate (Solu-Medrol) 60 mg IV Q8 [facility] Last Admin: 02/03/19 05:46 Dose: 60 mg Documented by: Nicotine (Nicoderm) 14 mg TOPICAL DAILY@1000 [facility] Last Admin: 02/03/19 08:09 Dose: Not Given Documented by: Ondansetron HCl (Zofran) 4 mg IV Q4-6HP PRN; Protocol PRN Reason: Nausea And Vomiting Potassium Chloride (Klor-Con) 40 meq PO DAILYP PRN PRN Reason: K+ < 3.5 [facility] Last Admin: 02/03/19 06:27 Dose: 10 meq Documented by: Pramipexole Dihydrochloride (Mirapex) 1 mg PO [facility] Last Admin: 02/02/19 19:59 Dose: 1 mg Documented by: Senna/Docusate Sodium (Senna Plus Tablet) 1 tab PO [facility] Last Admin: 02/02/19 19:59 Dose: 1 tab Documented by: Sodium Chloride (Saline Flush) 10 ml IV Q8 [facility] Last Admin: 02/03/19 05:45 Dose: Not Given Documented by: Medical - PN: A/P - Time Spent With Patient Total time spent is greater than 50% in coordination of care (as documented) at patient's floor/unit and/or counseling patient: Greater than 35 minutes (Critical care time) (1) Acute respiratory failure with hypercapnia Status: Acute Assessment and plan: * Acute hypoxic respiratory failure-worsening now requiring 50% FiO2 with PO2 51. Worsening interval chest imaging with basilar infiltrates. * Acute hypercapnic respiratory failure-clinically improving with PCO2 down from 106->79-> 73 with pH improving from 7.29->7.34. Continue noninvasive mechanical ventilation with titration based on blood gas. Critically ill. Admit blood gas 7.32/91/35, Repeat blood gas after 2 hours on BiPAP worsened to 7.29/1 104/66 on 40% FiO2. Will intubate if continues to get worse. Reaves samson noninvasive vent setting with higher rate * Hypercapnic encephalopathy -clinically improving and more responsive with downtrending hypercapnia * Acute exacerbation of COPD-clinically continue steroids/bronchodilators * Right upper lobe pneumonia likely secondary to aspiration. Worsening on imaging. Continue aspiration precautions/diet per ST recommendations/elevate HOB/antibiotic coverage * Severe self-care deficit/deconditioning and high risk injury/fall. Will require SNF placement * History MONI with chronic CO2 retention with baseline corrected () CO2 around 60. * history of CAD continue on aspirin/Plavix/statin * Left lower extremity cellulitis-continue antibiotic coverage. Limb elevation * Hyperlipidemia on statin * Tobacco dependence continue nicotine patch Plan * Continue noninvasive mechanical ventilation * Blood gas/serial imaging * Aspiration precautions/elevate HOB/antibiotic coverage * Prior medical condition management and home meds * PT OT/nutrition support * Patient remains critically ill with worsening hypoxia and aspiration * SNF discharge coordination Current Visit: No Medical - PN: Qual - VTE Deep Vein Thrombosis/Pulmonary Embolism Present on Admission: No
[2019-02-03] MEDS ORDERED: FLUMAZENIL 0.1 MG/ML ML IV ONE (13:34)
--- NOTE | 2019-02-03 14:43 | XRay Report ---
CLINICAL INFORMATION: Shortness of breath COMPARISON: 02/01/2019 FINDINGS: Heart is mildly enlarged with increased. Mediastinum is unremarkable. Pulmonary vessels are now mildly distended and there is minimal interstitial edema in the lateral bases. Mild patchy infiltrates are now seen in both lung bases. A small right pleural effusion noted IMPRESSION: Mild CHF - new Mild patchy bibasilar infiltrates - new Interpreted and Authenticated by: Sunil Camargo 02/03/19
[2019-02-03 17:09] LABS: ABG Base Excess 7.8 (-2.0-2.0); ABG Methemoglobin 0.3 % (0.4-1.5); ABG Oxygen Saturation 93.2 % (94.0-97.0); ABG PCO2 87.9 mmHg (35.0-45.0); ABG PH 7.25 U (7.35-7.45); ABG PO2 80 mmHg (80-100); ABG TCO2 40.7 mmol/L (23.0-27.0); Total Hemoglobin 12.6 gm/dL (12.0-15.0)
[2019-02-03] MEDS: ATORVASTATIN 20 MG TABLET PO SCH (19:17)
[2019-02-03] MEDS: SENNOSIDES/DOCUSATE SODIUM 1 TAB TABLET PO SCH (19:17)
[2019-02-03] MEDS: MELATONIN 3 MG TABLET PO PRN (19:17)
[2019-02-03] MEDS: PRAMIPEXOLE 1 MG TABLET PO SCH (19:18)
[2019-02-03] MEDS: 0.9 % SODIUM CHLORIDE 1,000 ML IV SCH (19:37)
[2019-02-04] MEDS: BUDESONIDE 0.5 MG/2 ML AMPUL.NEB NEB SCH ×3 (00:27→18:35)
[2019-02-04] MEDS: PIPERACILLIN SODIUM/TAZOBACTAM 3.375 GM in DEXTROSE 5% IN WATER 50 ML IV SCH ×4 (00:54→18:28)
[2019-02-04] MEDS: IPRATROPIUM/ALBUTEROL 3 ML AMPUL.NEB NEB SCH ×6 (02:58→22:50)
[2019-02-04] MEDS: 0.9 % SODIUM CHLORIDE 10 ML SYRINGE IV SCH ×3 (05:03→22:32)
[2019-02-04] MEDS: methylPREDNISolone SOD SUCC 125 MG/2 ML VIAL IV SCH ×3 (05:05→22:31)
[2019-02-04 05:46] LABS: Hematocrit 38.1 % (36.0-48.0); Mean Cell Volume 82.5 fL (80.0-100.0); Mean Corpuscular HGB Conc 31.6 g/dL (31.0-36.0); Mean Platelet Volume 7.1 fL (7.4-10.4); Platelet Count 248 K/mcL (140-440); RBC 4.62 M/mcL (4.00-5.20); Red Cell Distribution Width 15.3 % (11.5-14.5); WBC 7.3 K/mcL (4.5-11.0)
[2019-02-04 06:13] LABS: ALT/SGPT 60 U/l (0-40); AST/SGOT 36 U/l (0-37); Albumin 3.5 gm/dL (3.2-5.2); Albumin/Globulin Ratio 1.3 (1.0-2.3); Alkaline Phosphatase 63 U/L (39-117); Bilirubin,Direct < 0.2 mg/dL (0.0-0.3); Bilirubin,Total 0.5 mg/dL (0.0-1.0); Calcium 8.4 mg/dl (8.6-10.4); Carbon Dioxide 34 mmol/L (22-30); Chloride 97 mmol/L (96-108); Globulin 2.8 gm/dL (2.2-3.7); Glomerular Filtration Rate 54; Glucose 139 mg/dL (70-105); Lactate Dehydrogenase 181 U/L (94-250); Phosphorous 3.5 mg/dL (2.7-4.5); Triglycerides 73 mg/dl (<150); Uric Acid 3.7 mg/dL (2.5-8.0)
[2019-02-04 06:15] LABS: Blood Urea Nitrogen 27 mg/dl (8-23)
[2019-02-04 06:40] LABS: Segmented Neutrophils % 90 % (38-78)
[2019-02-04 06:41] LABS: Lymphocytes % 10 % (15-49); Platelet Estimate NORMAL (NORMAL); RBC Morphology NORMAL (NORMAL)
[2019-02-04] MEDS: ACETAMINOPHEN 325 MG TABLET PO PRN (08:05)
[2019-02-04] MEDS: GABAPENTIN 300 MG CAPSULE PO SCH ×3 (08:06→22:53)
[2019-02-04] MEDS: ASPIRIN 81 MG TAB.CHEW PO SCH (08:06)
[2019-02-04] MEDS: DOCUSATE SODIUM 100 MG CAPSULE PO SCH ×3 (08:06→22:50)
[2019-02-04] MEDS: POTASSIUM CHLORIDE 10 MEQ TABLET PO SCH (08:06)
[2019-02-04] MEDS: LORazepam 2 MG/ML VIAL IV PRN ×4 (08:06→22:49)
[2019-02-04] MEDS: HEPARIN 5,000 UNIT/ML VIAL SQ SCH ×2 (08:06→22:30)
[2019-02-04] MEDS: DULoxetine 30 MG CAPSULE PO SCH (08:11)
[2019-02-04] MEDS: LEVOTHYROXINE 75 MCG TABLET PO SCH (08:11)
[2019-02-04] MEDS: buPROPion 150 MG TAB.SR.12H PO SCH ×4 (08:11→22:54)
[2019-02-04] MEDS: LEVOTHYROXINE 100 MCG TABLET PO SCH (08:11)
[2019-02-04] MEDS: NICOTINE 14 MG PATCH TOPICAL SCH (08:14)
--- NOTE | 2019-02-04 10:24 | XRay Report ---
CLINICAL INFORMATION: Hypoxia COMPARISON: 02/03/2018 FINDINGS: Heart is mildly enlarged, but unchanged. Mediastinum unremarkable. Pulmonary vessels have decreased in caliber are now only only minimally distended. Mild patchy bibasilar infiltrates have improved. IMPRESSION: Mild CHF - improved Mild patchy bibasilar infiltrates also improvement Interpreted and Authenticated by: Sunil Camargo 02/04/19
[2019-02-04] MEDS ORDERED: FLUMAZENIL 0.1 MG/ML ML IV ONE ×2 (13:30→14:03)
--- NOTE | 2019-02-04 15:51 | Internal Med Progress Note ---
Medical - PN: Subj Patient information: Note initiated : 02/04/19 at 3:48 pm Service Date, if different from initiated Date: [] Patient: Barbie Brunson a 79 y/o F admitted on 02/01/19 for Confusion, Cellulitis. Chief Complaint: [] Interval history: Ms. aWqas Chen is a 79 year old F morbidly obese with a history of advanced COPD who was brought into the ER with increasing weakness, confusion and shortness of breath. She is accompanied by her caregiver. Most of the history was obtained from the caregiver. Patient has been lethargic over the last couple of days and has progressed to the point she can barely move or function unable get out of bed. She is also noted to have significant redness involving left lower extremity from the ankle up to the knee along with increasing tenderness without bruising. She was prescribed doxycycline by her primary care physician. Her symptoms continue to deteriorate despite treatment. During the initial evaluation in the ER patient was not able to provide any m eaningful history. ABG revealed significant hypercapnia with respiratory acidosis with pH of 7.32/91/35. CT angiogram chest revealed right upper lobe infiltrate suggestive of pneumonia but no evidence of PE. Patient was started on noninvasive ventilation in light of hypercapnic respiratory failure. Subsequently hospitalist service was consulted. At the time of evaluation patient currently on BiPAP. Unable to answer or provide meaningful response to questions. She appears very lethargic fatigued and barely able to open her eyes. Most of the history is obtained from review of medical records and from ER physician. Caregiver is bedside. 02/02-patient overnight on BiPAP. ABG improved from 7.29/106 -> 7.37/79/54 on 45% FiO2. Patient more alert and awake but anxious. Responding to commands. Able to express needs. No telemetry events. No fever chills. On antibiotic coverage. Continue IV steroids. Left lower extremity redness and swelling much improved. Significant alkalosis, 1 dose Diamox. Continue bronchodilators/breathing treatment/interval chest imaging and serial blood gas 02/03-patient continues on noninvasive mechanical ventilation. ABG worsened from 7.38/83/57-> 7.34/73/51 on 50% FiO2. Continuing bronchodilators. Remains minimally responsive and very anxious when awake. Increasing right basilar infiltrates on chest imaging. Continue steroids bronchodilators. Continue aggressive PT OT as tolerated. Patient remains critically ill due to advanced COPD and hypercapnic respiratory failure. Serial blood gas/imaging to follow. 01/04-ins on BiPAP. Interval ABG no changes with persistent hypercapnia/respiratory acidosis. Extended family discussion including nephew Olegario, patient, nursing staff about goals of care. Patient at this time contemplating going home versus further aggressive intervention. She expressed understanding of her deteriorating status with advanced COPD and dependency on mechanical ventilation. At this time an appropriate choice would be transferred to long-term acute care for gradual mechanical ventilation weaning versus consideration of hospice for end-of-life care. Chest x-ray shows improved interval improvement in congestive heart failure. Continue diuresis and noninvasive ventilation. - Constitutional Vitals: Vital Signs Temp Pulse Resp BP Pulse Ox 98.4 F 91 H 22 109/78 92 02/04/19 10:30 02/04/19 15:16 02/04/19 15:16 02/04/19 15:01 02/04/19 15:01 Period Temp Pulse Resp BP Sys/Hobbs Pulse Ox Last 24 Hr 98.1 F-98.6 F 83-95 14-29 105-171/51-150 85-95 Intake and Output 02/04/19 02/04/19 02/04/19 05:59 13:59 21:59 Intake Total 100 50 Output Total 4 1 Balance 96 49 Intake & Output: Intake & Output 02/04/19 02/04/19 02/04/19 05:59 13:59 21:59 Intake Total 100 50 Output Total 4 1 Balance 96 49 Intake: IV 100 50 Zosyn 3.375 gm In Dextrose 5% 100 50 in Water 50 ml @ 100 mls/hr IV Q6H [facility] Rx#:[id number] Output: # of times incontinent of urine 4 1 Other: # Bowel Movements 0 General appearance: morbidly obese, no acute distress Exam: Anxious No lymphedema Nonlabored breathing No telemetry events except for significant desaturation currently on noninvasive mechanical ventilation Medical - PN: Obj Da - Labs CBC & Chem 7: 02/04/19 04:15 02/04/19 04:15 Labs: Abnormal Lab Results 02/04/19 02/04/19 02/03/19 04:15 04:15 16:48 RBC MCH RDW 15.3 H MPV 7.1 L Seg Neutrophils % 90 H Lymphocytes % 10 L RBC Morphology Anisocytosis POC PT ABG pH 7.25 L ABG pCO2 87.9 H* ABG HCO3 38.0 H ABG Total CO2 40.7 H ABG O2 Saturation 93.2 L ABG Base Excess 7.8 H ABG Methemoglobin 0.3 L Chloride Carbon Dioxide 34 H Anion Gap BUN 27 H Glucose 139 H Calcium 8.4 L AST ALT 60 H 02/03/19 02/03/19 02/02/19 04:00 04:00 04:06 RBC MCH RDW 15.5 H MPV 7.1 L Seg Neutrophils % 92 H Lymphocytes % 8 L RBC Morphology Anisocytosis POC PT ABG pH ABG pCO2 ABG HCO3 ABG Total CO2 ABG O2 Saturation ABG Base Excess ABG Methemoglobin Chloride 93 L Carbon Dioxide 34 H 40 H Anion Gap BUN Glucose 143 H 131 H Calcium 8.4 L AST 59 H ALT 69 H 02/02/19 02/01/19 02/01/19 04:06 15:40 15:26 RBC MCH RDW 15.5 H MPV 6.9 L Seg Neutrophils % 90 H Lymphocytes % 9 L RBC Morphology Abnorm A Anisocytosis Few A POC PT 11.6 L ABG pH ABG pCO2 ABG HCO3 ABG Total CO2 ABG O2 Saturation ABG Base Excess ABG Methemoglobin Chloride Carbon Dioxide 38 H Anion Gap 7.0 L BUN Glucose Calcium AST ALT 02/01/19 15:26 RBC 5.21 H MCH 25.8 L RDW 15.3 H MPV 6.6 L Seg Neutrophils % Lymphocytes % RBC Morphology Anisocytosis POC PT ABG pH ABG pCO2 ABG HCO3 ABG Total CO2 ABG O2 Saturation ABG Base Excess ABG Methemoglobin Chloride Carbon Dioxide Anion Gap BUN Glucose Calcium AST ALT Meds: Medications Acetaminophen (Tylenol) 650 mg PO Q4-6HP PRN; Protocol PRN Reason: Per Pain Protocol/Fever > 101 Last Admin: 02/04/19 08:05 Dose: 650 mg Documented by: Albuterol/Ipratropium (Duoneb) 3 ml NEB Q4HRT [facility] Last Admin: 02/04/19 15:07 Dose: 3 ml Documented by: Aspirin (Aspirin) 81 mg PO DAILY [facility] Last Admin: 02/04/19 08:06 Dose: 81 mg Documented by: Atorvastatin Calcium (Lipitor) 10 mg PO HS [facility] Last Admin: 02/03/19 19:17 Dose: 10 mg Documented by: Budesonide (Pulmicort) 0.5 mg NEB Q12 [facility] Last Admin: 02/04/19 07:15 Dose: 0.5 mg Documented by: Bupropion HCl (Wellbutrin Sr) 300 mg PO BID [facility] Last Admin: 02/04/19 08:11 Dose: 300 mg Documented by: Docusate Sodium (Colace) 100 mg PO BID [facility] Last Admin: 02/04/19 08:06 Dose: 100 mg Documented by: Duloxetine HCl (Cymbalta) 90 mg PO DAILY [facility] Last Admin: 02/04/19 08:11 Dose: 90 mg Documented by: Furosemide (Lasix) 40 mg PO DAILYP PRN PRN Reason: Edema Gabapentin (Neurontin) 1,200 mg PO BID [facility] Last Admin: 02/04/19 08:06 Dose: 1,200 mg Documented by: Heparin Sodium (Porcine) (Heparin) 5,000 unit SQ Q12 [facility] Last Admin: 02/04/19 08:06 Dose: 5,000 unit Documented by: Acetaminophen (Ofirmev) 650 mg in 65 mls @ 130 mls/hr IV Q6HP PRN; Protocol PRN Reason: Per Pain Protocol/Fever > 101 Magnesium Sulfate (Magnesium Sulfate) 2 gm in 50 mls @ 50 mls/hr IV UD PRN PRN Reason: MG = or < 1.7 Piperacillin Sod/Tazobactam (Sod 3.375 gm/ Dextrose) 50 mls @ 100 mls/hr IV Q6H [facility]; Protocol Last Infusion: 02/04/19 12:45 Dose: Infused Documented by: Levothyroxine Sodium (Synthroid) 100 mcg PO ACB [facility] Last Admin: 02/04/19 08:11 Dose: 100 mcg Documented by: Levothyroxine Sodium (Synthroid) 75 mcg PO QAMAC [facility] Last Admin: 02/04/19 08:11 Dose: 75 mcg Documented by: Lorazepam (Ativan) 0.5 mg IV Q2HP PRN PRN Reason: ANXIETY/SEDATION Last Admin: 02/04/19 11:27 Dose: 0.5 mg Documented by: Melatonin (Melatonin 3mg Tablet) 3 mg PO HSP PRN PRN Reason: Insomnia Last Admin: 02/03/19 19:17 Dose: 3 mg Documented by: Methylprednisolone Sodium Succinate (Solu-Medrol) 60 mg IV Q8 [facility] Last Admin: 02/04/19 15:01 Dose: 60 mg Documented by: Nicotine (Nicoderm) 14 mg TOPICAL DAILY@1000 [facility] Last Admin: 02/04/19 08:14 Dose: 14 mg Documented by: Ondansetron HCl (Zofran) 4 mg IV Q4-6HP PRN; Protocol PRN Reason: Nausea And Vomiting Potassium Chloride (Klor-Con) 40 meq PO DAILYP PRN PRN Reason: K+ < 3.5 Potassium Chloride (Kdur) 10 meq PO QAC [facility] Last Admin: 02/04/19 08:06 Dose: 10 meq Documented by: Pramipexole Dihydrochloride (Mirapex) 1 mg PO [facility] Last Admin: 02/03/19 19:18 Dose: 1 mg Documented by: Senna/Docusate Sodium (Senna Plus Tablet) 1 tab PO [facility] Last Admin: 02/03/19 19:17 Dose: 1 tab Documented by: Sodium Chloride (Saline Flush) 10 ml IV Q8 [facility] Last Admin: 02/04/19 12:17 Dose: 10 ml Documented by: - ABG Interpretation ABG results: 02/03/19 16:48 ABG pH 7.25 L ABG pCO2 87.9 H* ABG pO2 80 ABG HCO3 38.0 H ABG Total CO2 40.7 H ABG O2 Saturation 93.2 L ABG Base Excess 7.8 H ABG Methemoglobin 0.3 L Medical - PN: A/P - Time Spent With Patient Total time spent is greater than 50% in coordination of care (as documented) at patient's floor/unit and/or counseling patient: Greater than 35 minutes (Critical care time) (1) Acute respiratory failure with hypercapnia Status: Acute Assessment and plan: * Acute hypoxic respiratory failure-combination of underlying aspiration/CHF. Continue diuresis. Improved ABGs on noninvasive ventilation. * Acute hypercapnic respiratory failure-secondary to MONI/COPD. ABG unchanged on mechanical NIV PCO2 down from 106->79-> 73->78 with pH improving from 7.29- >7.34. Continue NIV. Consider LTAC placement * Acute decompensated heart failure-continue diuresis. * Acute exacerbation of COPD- continue steroids/bronchodilators * Right upper lobe pneumonia likely secondary to aspiration. On antibiotic coverage/elevate HOB/aspiration precautions * Severe self-care deficit/deconditioning and high risk injury/fall. * History MONI with chronic CO2 retention with baseline corrected () CO2 around 60. * history of CAD continue on aspirin/Plavix/statin * Left lower extremity cellulitis-continue antibiotic coverage. Limb elevation * Hyperlipidemia on statin * Tobacco dependence continue nicotine patch Plan * Mechanical NIV * Blood gas/serial imaging * Diuresis * Consider LTAC placement versus hospice * Aspiration precautions/elevate HOB/antibiotic coverage * Prior medical condition management and home meds * PT OT/nutrition support * Critically ill Current Visit: No Medical - PN: Qual - VTE Deep Vein Thrombosis/Pulmonary Embolism Present on Admission: No
[2019-02-04] MEDS: FUROSEMIDE 20 MG/2 ML VIAL IV SCH (18:28)
[2019-02-04] MEDS: MELATONIN 3 MG TABLET PO PRN (18:40)
[2019-02-04] MEDS: SENNOSIDES/DOCUSATE SODIUM 1 TAB TABLET PO SCH ×2 (18:41→22:54)
[2019-02-04] MEDS: PRAMIPEXOLE 1 MG TABLET PO SCH ×2 (18:41→22:53)
[2019-02-04] MEDS: ATORVASTATIN 20 MG TABLET PO SCH ×2 (18:42→22:50)
[2019-02-05] MEDS: PIPERACILLIN SODIUM/TAZOBACTAM 3.375 GM in DEXTROSE 5% IN WATER 50 ML IV SCH ×3 (00:18→11:16)
[2019-02-05] MEDS: IPRATROPIUM/ALBUTEROL 3 ML AMPUL.NEB NEB SCH ×3 (02:56→12:03)
[2019-02-05] MEDS: methylPREDNISolone SOD SUCC 125 MG/2 ML VIAL IV SCH (05:33)
[2019-02-05] MEDS: 0.9 % SODIUM CHLORIDE 10 ML SYRINGE IV SCH ×3 (05:34→21:32)
[2019-02-05 06:58] LABS: ALT/SGPT 66 U/l (0-40); AST/SGOT 39 U/l (0-37); Albumin 3.4 gm/dL (3.2-5.2); Albumin/Globulin Ratio 1.2 (1.0-2.3); Alkaline Phosphatase 61 U/L (39-117); Bilirubin,Direct < 0.2 mg/dL (0.0-0.3); Bilirubin,Total 0.4 mg/dL (0.0-1.0); Blood Urea Nitrogen 30 mg/dl (8-23); Calcium 8.4 mg/dl (8.6-10.4); Carbon Dioxide 35 mmol/L (22-30); Chloride 99 mmol/L (96-108); Globulin 2.9 gm/dL (2.2-3.7); Glomerular Filtration Rate 48; Glucose 137 mg/dL (70-105); Lactate Dehydrogenase 190 U/L (94-250); Phosphorous 3.3 mg/dL (2.7-4.5); Triglycerides 68 mg/dl (<150); Uric Acid 4.1 mg/dL (2.5-8.0)
[2019-02-05] MEDS: BUDESONIDE 0.5 MG/2 ML AMPUL.NEB NEB SCH (07:01)
[2019-02-05 08:13] LABS: Lymphocytes % 9 % (15-49); Monocytes % (Manual) 2 % (1-12); Platelet Estimate NORMAL (NORMAL); RBC Morphology NORMAL (NORMAL); Segmented Neutrophils % 89 % (38-78)
[2019-02-05 08:14] LABS: Hematocrit 36.1 % (36.0-48.0); Hemoglobin 11.8 g/dL (12.0-15.0); Mean Cell Volume 81.2 fL (80.0-100.0); Mean Corpuscular HGB Conc 32.7 g/dL (31.0-36.0); Mean Platelet Volume 7.9 fL (7.4-10.4); Platelet Count 238 K/mcL (140-440); RBC 4.45 M/mcL (4.00-5.20); Red Cell Distribution Width 14.6 % (11.5-14.5)
[2019-02-05] MEDS: NICOTINE 14 MG PATCH TOPICAL SCH (10:54)
[2019-02-05] MEDS: ASPIRIN 81 MG TAB.CHEW PO SCH (10:55)
[2019-02-05] MEDS: buPROPion 150 MG TAB.SR.12H PO SCH (10:55)
[2019-02-05] MEDS: HEPARIN 5,000 UNIT/ML VIAL SQ SCH (10:55)
[2019-02-05] MEDS: DOCUSATE SODIUM 100 MG CAPSULE PO SCH (10:56)
[2019-02-05] MEDS: LEVOTHYROXINE 100 MCG TABLET PO SCH (10:56)
[2019-02-05] MEDS: LEVOTHYROXINE 75 MCG TABLET PO SCH (10:56)
[2019-02-05] MEDS: DULoxetine 30 MG CAPSULE PO SCH (10:57)
[2019-02-05] MEDS: GABAPENTIN 300 MG CAPSULE PO SCH (10:57)
[2019-02-05] MEDS: FUROSEMIDE 20 MG/2 ML VIAL IV SCH (10:58)
[2019-02-05] MEDS: POTASSIUM CHLORIDE 10 MEQ TABLET PO SCH (10:58)
--- NOTE | 2019-02-05 11:32 | Internal Med Progress Note ---
Medical - PN: Subj Patient information: Note initiated : 02/05/19 at 11:29 am Service Date, if different from initiated Date: [] Patient: Barbie Brunson a 79 y/o F admitted on 02/01/19 for Confusion, Cellulitis. Chief Complaint: [] Interval history: Ms. Waqas Chen is a 79 year old F morbidly obese with a history of advanced COPD who was brought into the ER with increasing weakness, confusion and shortness of breath. She is accompanied by her caregiver. Most of the history was obtained from the caregiver. Patient has been lethargic over the last couple of days and has progressed to the point she can barely move or function unable get out of bed. She is also noted to have significant redness involving left lower extremity from the ankle up to the knee along with increasing tenderness without bruising. She was prescribed doxycycline by her primary care physician. Her symptoms continue to deteriorate despite treatment. During the initial evaluation in the ER patient was not able to provide any meaningful history. ABG revealed significant hypercapnia with respiratory acidosis with pH of 7.32/91/35. CT angiogram chest revealed right upper lobe infiltrate suggestive of pneumonia but no evidence of PE. Patient was started on noninvasive ventilation in light of hypercapnic respiratory failure. Subsequently hospitalist service was consulted. At the time of evaluation patient currently on BiPAP. Unable to answer or provide meaningful response to questions. She appears very lethargic fatigued and barely able to open her eyes. Most of the history is obtained from review of medical records and from ER physician. Caregiver is bedside. 02/02-patient overnight on BiPAP. ABG improved from 7.29/106 -> 7.37/79/54 on 45% FiO2. Patient more alert and awake but anxious. Responding to commands. Able to express needs. No telemetry events. No fever chills. On antibiotic coverage. Continue IV steroids. Left lower extremity redness and swelling much improved. Significant alkalosis, 1 dose Diamox. Continue bronchodilators/breathing treatment/interval chest imaging and serial blood gas 02/03-patient continues on noninvasive mechanical ventilation. ABG worsened from 7.38/83/57-> 7.34/73/51 on 50% FiO2. Continuing bronchodilators. Remains minimally responsive and very anxious when awake. Increasing right basilar infiltrates on chest imaging. Continue steroids bronchodilators. Continue aggressive PT OT as tolerated. Patient remains critically ill due to advanced COPD and hypercapnic respiratory failure. Serial blood gas/imaging to follow. 02/04-patient on BiPAP. Interval ABG no changes with persistent hypercapnia/respiratory acidosis. Extended family discussion including nephew Olegario, patient, nursing staff about goals of care. Patient at this time contem plating going home versus further aggressive intervention. She expressed understanding of her deteriorating status with advanced COPD and dependency on mechanical ventilation. At this time an appropriate choice would be transferred to long-term acute care for gradual mechanical ventilation weaning versus consideration of hospice for end-of-life care. Chest x-ray shows improved interval improvement in congestive heart failure. Continue diuresis and noninvasive ventilation. Later in the day patient decided to proceed with comfort care and morning. Patient would want her pet at bedside. Only nephew rec available at this time. He would be informing other family members if they would like to visit. 02/05-patient remains critically ill. Son at bedside. Patient expressed desire not to continue noninvasive ventilation and wishes to spend time with family and her pet. She is aware that her demise is eminent off BiPAP due to end-stage lung disease with progressive hypercapnia. Patient will transition to medical floor for end-of-life care. Currently on 9 L oxygen waiting for family members. Denies distress or pain or anxiety. Occasionally tearful. - Constitutional Vitals: Vital Signs Temp Pulse Resp BP Pulse Ox 98.4 F 90 19 134/83 93 02/05/19 04:00 02/05/19 07:08 02/05/19 07:08 02/05/19 07:01 02/05/19 08:00 Period Temp Pulse Resp BP Sys/Hobbs Pulse Ox Last 24 Hr 98.1 F-98.9 F 79-113 13-29 109-138/66-115 88-95 Intake and Output 02/04/19 02/05/19 02/05/19 21:59 05:59 13:59 Intake Total 50 1010 50 Output Total 2 3 Balance 48 1007 50 Weight 248 lb 11.2 oz Intake & Output: Intake & Output 02/04/19 02/05/19 02/05/19 21:59 05:59 13:59 Intake Total 50 1010 50 Output Total 2 3 Balance 48 1007 50 Weight 248 lb 11.2 oz Intake: IV 50 50 50 Zosyn 3.375 gm In Dextrose 5% 50 50 50 in Water 50 ml @ 100 mls/hr IV Q6H [facility] Rx#:[id number] Oral 960 Output: # of times incontinent of urine 2 3 Other: Meal Dinner Percent of Meal Consumed 50% Urine Color Dark Yellow Urine Odor Strong # Bowel Movements 0 Exam: Full and minimally anxious Nonlabored breathing on 9 L oxygen Son at bedside Sats around mid 80s Medical - PN: Obj Da - Labs CBC & Chem 7: 02/05/19 03:47 02/05/19 03:47 Labs: Abnormal Lab Results 02/05/19 02/05/19 02/04/19 03:47 03:47 04:15 Hgb 11.8 L RDW 14.6 H MPV Seg Neutrophils % 89 H Lymphocytes % 9 L ABG pH ABG pCO2 ABG HCO3 ABG Total CO2 ABG O2 Saturation ABG Base Excess ABG Methemoglobin Carbon Dioxide 35 H 34 H BUN 30 H 27 H Glucose 137 H 139 H Calcium 8.4 L 8.4 L AST 39 H ALT 66 H 60 H 02/04/19 02/03/19 02/03/19 04:15 16:48 04:00 Hgb RDW 15.3 H MPV 7.1 L Seg Neutrophils % 90 H Lymphocytes % 10 L ABG pH 7.25 L ABG pCO2 87.9 H* ABG HCO3 38.0 H ABG Total CO2 40.7 H ABG O2 Saturation 93.2 L ABG Base Excess 7.8 H ABG Methemoglobin 0.3 L Carbon Dioxide 34 H BUN Glucose 143 H Calcium 8.4 L AST 59 H ALT 69 H 02/03/19 04:00 Hgb RDW 15.5 H MPV 7.1 L Seg Neutrophils % 92 H Lymphocytes % 8 L ABG pH ABG pCO2 ABG HCO3 ABG Total CO2 ABG O2 Saturation ABG Base Excess ABG Methemoglobin Carbon Dioxide BUN Glucose Calcium AST ALT Meds: Medications Acetaminophen (Tylenol) 650 mg PO Q4-6HP PRN; Protocol PRN Reason: Per Pain Protocol/Fever > 101 Last Admin: 02/04/19 08:05 Dose: 650 mg Documented by: Albuterol/Ipratropium (Duoneb) 3 ml NEB Q4HRT [facility] Last Admin: 02/05/19 06:55 Dose: 3 ml Documented by: Aspirin (Aspirin) 81 mg PO DAILY [facility] Last Admin: 02/05/19 10:55 Dose: 81 mg Documented by: Atorvastatin Calcium (Lipitor) 10 mg PO HS [facility] Last Admin: 02/04/19 22:50 Dose: Not Given Documented by: Budesonide (Pulmicort) 0.5 mg NEB Q12 [facility] Last Admin: 02/05/19 07:01 Dose: 0.5 mg Documented by: Bupropion HCl (Wellbutrin Sr) 300 mg PO BID [facility] Last Admin: 02/05/19 10:55 Dose: 300 mg Documented by: Docusate Sodium (Colace) 100 mg PO BID [facility] Last Admin: 02/05/19 10:56 Dose: 100 mg Documented by: Duloxetine HCl (Cymbalta) 90 mg PO DAILY [facility] Last Admin: 02/05/19 10:57 Dose: 90 mg Documented by: Furosemide (Lasix) 40 mg PO DAILYP PRN PRN Reason: Edema Furosemide (Lasix) 20 mg IV BIDD [facility] Last Admin: 02/05/19 10:58 Dose: 20 mg Documented by: Gabapentin (Neurontin) 1,200 mg PO BID [facility] Last Admin: 02/05/19 10:57 Dose: 1,200 mg Documented by: Heparin Sodium (Porcine) (Heparin) 5,000 unit SQ Q12 [facility] Last Admin: 02/05/19 10:55 Dose: 5,000 unit Documented by: Acetaminophen (Ofirmev) 650 mg in 65 mls @ 130 mls/hr IV Q6HP PRN; Protocol PRN Reason: Per Pain Protocol/Fever > 101 Magnesium Sulfate (Magnesium Sulfate) 2 gm in 50 mls @ 50 mls/hr IV UD PRN PRN Reason: MG = or < 1.7 Piperacillin Sod/Tazobactam (Sod 3.375 gm/ Dextrose) 50 mls @ 100 mls/hr IV Q6H [facility]; Protocol Last Admin: 02/05/19 11:16 Dose: 100 mls/hr Documented by: Levothyroxine Sodium (Synthroid) 100 mcg PO ACB [facility] Last Admin: 02/05/19 10:56 Dose: 100 mcg Documented by: Levothyroxine Sodium (Synthroid) 75 mcg PO QAMAC [facility] Last Admin: 02/05/19 10:56 Dose: 75 mcg Documented by: Lorazepam (Ativan) 0.5 mg IV Q2HP PRN PRN Reason: ANXIETY/SEDATION Last Admin: 02/04/19 22:49 Dose: 0.5 mg Documented by: Melatonin (Melatonin 3mg Tablet) 3 mg PO HSP PRN PRN Reason: Insomnia Last Admin: 02/04/19 18:40 Dose: 3 mg Documented by: Methylprednisolone Sodium Succinate (Solu-Medrol) 60 mg IV Q8 [facility] Last Admin: 02/05/19 05:33 Dose: 60 mg Documented by: Nicotine (Nicoderm) 14 mg TOPICAL DAILY@1000 [facility] Last Admin: 02/05/19 10:54 Dose: 14 mg Documented by: Ondansetron HCl (Zofran) 4 mg IV Q4-6HP PRN; Protocol PRN Reason: Nausea And Vomiting Potassium Chloride (Klor-Con) 40 meq PO DAILYP PRN PRN Reason: K+ < 3.5 Potassium Chloride (Kdur) 10 meq PO QAC [facility] Last Admin: 02/05/19 10:58 Dose: 10 meq Documented by: Pramipexole Dihydrochloride (Mirapex) 1 mg PO [facility] Last Admin: 02/04/19 22:53 Dose: Not Given Documented by: Senna/Docusate Sodium (Senna Plus Tablet) 1 tab PO [facility] Last Admin: 02/04/19 22:54 Dose: Not Given Documented by: Sodium Chloride (Saline Flush) 10 ml IV Q8 [facility] Last Admin: 02/05/19 05:34 Dose: 10 ml Documented by: - ABG Interpretation ABG results: 02/03/19 16:48 ABG pH 7.25 L ABG pCO2 87.9 H* ABG pO2 80 ABG HCO3 38.0 H ABG Total CO2 40.7 H ABG O2 Saturation 93.2 L ABG Base Excess 7.8 H ABG Methemoglobin 0.3 L Medical - PN: A/P - Time Spent With Patient Total time spent is greater than 50% in coordination of care (as documented) at patient's floor/unit and/or counseling patient: Greater than 35 minutes (Critical care time) (1) Acute respiratory failure with hypercapnia Status: Acute Assessment and plan: * Acute hypoxic respiratory failure-combination of underlying aspiration pneumonia/CHF. * Acute hypercapnic respiratory failure-secondary to MONI/advanced COPD/active sm oker. Not responding to trials of BiPAP. Patient refused transfer to long- term acute care center. Shows comfort care and discontinuation of noninvasive ventilation. Multiple discussions on 02/04 and subsequently today in the presence of family members and staff patient expressed her wishes against transfer to LTAC and discontinuation of BiPAP clearly understanding that could lead to her demise. Issues that were aggressively managed during hospitalization but all treatments will be discontinued as per patient wishes includes as below * Acute decompensated heart failure * Acute exacerbation of COPD-managed on steroids/bronchodilators * Right upper lobe pneumonia likely secondary to aspiration. Managed on antibiotic coverage/elevate HOB/aspiration precautions * Severe self-care deficit/deconditioning and high risk injury/fall. * History MONI with chronic CO2 retention with baseline corrected () CO2 around 60. * history of CAD continue on aspirin/Plavix/statin * Left lower extremity cellulitis-managed on antibiotic coverage. Limb elevation * Hyperlipidemia on statin * Tobacco dependence continue nicotine patch Plan * Discontinue mechanical NIV * discontinue lood gas/serial imaging * Start end-of-life care interventions * Critically ill Current Visit: No Medical - PN: Qual - VTE Deep Vein Thrombosis/Pulmonary Embolism Present on Admission: No
[2019-02-05] MEDS ORDERED: ACETAMINOPHEN 325 MG TABLET PO PRN (13:17)
[2019-02-05] MEDS ORDERED: POTASSIUM CHLORIDE 20 MEQ PACKET PO PRN (13:17)
[2019-02-05] MEDS ORDERED: LORazepam 2 MG/ML VIAL IV PRN (13:17)
[2019-02-05] MEDS ORDERED: ACETAMINOPHEN 650 MG/65 ML BOTTLE IV PRN ×2 (13:17→16:26)
[2019-02-05] MEDS ORDERED: MELATONIN 3 MG TABLET PO PRN (13:17)
[2019-02-05] MEDS ORDERED: ONDANSETRON 4 MG/2 ML VIAL IV PRN ×2 (13:17→16:26)
[2019-02-05] MEDS ORDERED: MAGNESIUM SULFATE 2 GM/50 ML BAG IV PRN (13:17)
[2019-02-05] MEDS ORDERED: FUROSEMIDE 20 MG TABLET PO PRN (13:17)
[2019-02-05] MEDS ORDERED: LORazepam 2 MG/ML VIAL ONE (13:40)
[2019-02-05] MEDS ORDERED: 0.9 % SODIUM CHLORIDE 10 ML SYRINGE IV SCH (14:00)
[2019-02-05] MEDS ORDERED: methylPREDNISolone SOD SUCC 125 MG/2 ML VIAL IV SCH (14:00)
[2019-02-05] MEDS ORDERED: IPRATROPIUM/ALBUTEROL 3 ML AMPUL.NEB NEB SCH (15:00)
[2019-02-05] MEDS ORDERED: IPRATROPIUM/ALBUTEROL 3 ML AMPUL.NEB NEB PRN (15:24)
[2019-02-05] MEDS ORDERED: FUROSEMIDE 20 MG/2 ML VIAL IV SCH (16:00)
[2019-02-05] MEDS ORDERED: LACTOPEROXI/GLUC OXID/POT THIO 1 EACH GEL..EA. TOPICAL PRN (16:26)
[2019-02-05] MEDS ORDERED: PIPERACILLIN SODIUM/TAZOBACTAM 3.375 GM in DEXTROSE 5% IN WATER 50 ML IV SCH (18:00)
[2019-02-05] MEDS: LORazepam 2 MG/ML VIAL IV PRN ×3 (19:59→23:41)
[2019-02-05] MEDS ORDERED: GABAPENTIN 300 MG CAPSULE PO SCH (21:00)
[2019-02-05] MEDS ORDERED: SENNOSIDES/DOCUSATE SODIUM 1 TAB TABLET PO SCH (21:00)
[2019-02-05] MEDS ORDERED: DOCUSATE SODIUM 100 MG CAPSULE PO SCH (21:00)
[2019-02-05] MEDS ORDERED: buPROPion 150 MG TAB.SR.12H PO SCH (21:00)
[2019-02-05] MEDS ORDERED: ATORVASTATIN 20 MG TABLET PO SCH (21:00)
[2019-02-05] MEDS ORDERED: BUDESONIDE 0.5 MG/2 ML AMPUL.NEB NEB SCH (21:00)
[2019-02-05] MEDS ORDERED: HEPARIN 5,000 UNIT/ML VIAL SQ SCH (21:00)
[2019-02-05] MEDS ORDERED: PRAMIPEXOLE 1 MG TABLET PO SCH (21:00)
[2019-02-06] MEDS: LORazepam 2 MG/ML VIAL IV PRN ×3 (02:51→07:29)
[2019-02-06] MEDS: 0.9 % SODIUM CHLORIDE 10 ML SYRINGE IV SCH (05:21)
[2019-02-06] MEDS ORDERED: LEVOTHYROXINE 100 MCG TABLET PO SCH (07:30)
[2019-02-06] MEDS ORDERED: LEVOTHYROXINE 75 MCG TABLET PO SCH (07:30)
[2019-02-06] MEDS ORDERED: POTASSIUM CHLORIDE 10 MEQ TABLET PO SCH (08:00)
[2019-02-06] MEDS ORDERED: DULoxetine 30 MG CAPSULE PO SCH (09:00)
[2019-02-06] MEDS ORDERED: ASPIRIN 81 MG TAB.CHEW PO SCH (09:00)
--- NOTE | 2019-02-06 09:38 | Death Note ---
Discharge Sum: Prov - Provider Patient information: Note initiated : 02/06/19 at 9:36 am Service Date, if different from initiated Date: [] Patient: Barbie Brunson a 79 y/o F admitted on 02/01/19 for Confusion, Cellulitis. Chief Complaint: [] Primary care physician: Laura Graham Consults: 02/02/19 11:56 Consult to Physician [CONS] Routine Comment: Consulting Provider: Bart Zelaya Reason For Exam: Physician to Consult Discharge Sum: Diag - PCOD Cause of : Respiratory infection (Respiratory failure) - Contributing Factors (1) Acute respiratory failure with hypercapnia * Hypercapnic hypoxic respiratory failure * Decompensated heart failure * Advanced COPD with hypercapnia and hypoxia * Severe MONI with CO2 retention Discharge Sum: Summary - Date and Time Date of admission: 02/01/19 21:30 Date of : 02/06/19 Time of : 08:55 - Summary Details: Ms. Waqas Chen is a 79 year old F morbidly obese with a history of advanced COPD who was brought into the ER with increasing weakness, confusion and shortness of breath. She is accompanied by her caregiver. Most of the history was obtained from the caregiver. Patient has been lethargic over the last couple of days and has progressed to the point she can barely move or function unable get out of bed. She is also noted to have significant redness involving left lower extremity from the ankle up to the knee along with increasing tenderness without bruising. She was prescribed doxycycline by her primary care physician. Her symptoms continue to deteriorate despite treatment. During the initial evaluation in the ER patient was not able to provide any meaningful history. ABG revealed significant hypercapnia with respiratory acidosis with pH of 7.32/91/35. CT angiogram chest revealed right upper lobe infiltrate suggestive of pneumonia but no evidence of PE. Patient was started on noninvasive ventilation in light of hypercapnic respiratory failure. Subsequently hospitalist service was consulted. At the time of evaluation patient currently on BiPAP. Unable to answer or provide meaningful response to questions. She appears very lethargic fatigued and barely able to open her eyes. Most of the history is obtained from review of medical records and from ER physician. Caregiver is bedside. 02/02-patient overnight on BiPAP. ABG improved from 7.29/106 -> 7.37/79/54 on 45% FiO2. Patient more alert and awake but anxious. Responding to commands. Able to express needs. No telemetry events. No fever chills. On antibiotic coverage. Continue IV steroids. Left lower extremity redness and swelling much improved. Significant alkalosis, 1 dose Diamox. Continue bronchodilators/breathing treatment/interval chest imaging and serial blood gas 02/03-patient continues on noninvasive mechanical ventilation. ABG worsened from 7.38/83/57-> 7.34/73/51 on 50% FiO2. Continuing bronchodilators. Remains minimally responsive and very anxious when awake. Increasing right basilar infiltrates on chest imaging. Continue steroids bronchodilators. Continue aggressive PT OT as tolerated. Patient remains critically ill due to advanced COPD and hypercapnic respiratory failure. Serial blood gas/imaging to follow. 02/04-patient on BiPAP. Interval ABG no changes with persistent hypercapnia/respiratory acidosis. Extended family discussion including nephcely Melvin, patient, nursing staff about goals of care. Patient at this time contemplating going home versus further aggressive intervention. She expressed understanding of her deteriorating status with advanced COPD and dependency on mechanical ventilation. At this time an appropriate choice would be transferred to long-term acute care for gradual mechanical ventilation weaning versus consideration of hospice for end-of-life care. Chest x-ray shows improved interval improvement in congestive heart failure. Continue diuresis and noninvasive ventilation. Later in the day patient decided to proceed with comfort care and morning. Patient would want her pet at bedside. Only nephew rec available at this time. He would be informing other family members if they would like to visit. 02/05-patient remains critically ill. Son at bedside. Patient expressed desire not to continue noninvasive ventilation and wishes to spend time with family and her pet. She is aware that her demise is eminent off BiPAP due to end-stage lung disease with progressive hypercapnia. Patient will transition to medical floor for end-of-life care. Currently on 9 L oxygen waiting for family members. Denies distress or pain or anxiety. Occasionally tearful. 02/06-patient succumbed to progressive hypercapnic respiratory failure, multiple family members present. Symptoms were aggressively managed on anxiolytics/pain medications during end-of-life care. Condolences were offered. - Additional Data Confirmation of as documented by pronouncing clinician: no pulse, no respi rations, no heart sounds, pupils fixed and dilated Family: at bedside Additional persons at bedside: director of social media marketing Attending/PCP notified?: No Attending physician: Bart Zelaya Was code activated?: No Autopsy requested?: No screen examiner notified?: No Organ bank notified?: No Advance directives?: No Hospice patient?: No
[2019-02-06] MEDS ORDERED: NICOTINE 14 MG PATCH TOPICAL SCH ×2 (10:00)
== END 2019-02-06 13:10 | disposition expired ==
LOC: ED 13:06 → ICU 21:30 → MEDSUR 02-05 12:00
PROVIDERS: ADMIT Internal Medicine; ATTEND Internal Medicine